=== PATIENT | female | born 1955 | race Caucasian/White ===

== ENCOUNTER 2023-08-04 09:51 | Emergency (ER) | payer OTHER ==
[~2023-08-04] VITALS: Ht 167.6 cm; Wt 65.8 kg
[~2023-08-04 09:51] MED LIST: AMOX500 PO; CRUTCH2 UD; ERYT.5TO BOTHEYES; OXYACE5T PO; RISP2 PO
[2023-08-04 10:05] VITALS: BP 115/65
[2023-08-04] MEDS ORDERED: IBUP600 PO (10:31)
== END 2023-08-04 11:19 | disposition home or self-care (01) ==
LOC: ER 09:51
DX: M54.9 Dorsalgia, unspecified (principal); G89.29 Other chronic pain; W01.0XXA Fall on same level from slipping, tripping and stumbling without subsequent striking against object, initial encounter
CPT/HCPCS: 99283; A9270

== ENCOUNTER 2023-08-17 08:08 | Emergency (ER) | payer SELFPAY ==
[~2023-08-17] VITALS: Ht 162.6 cm; Wt 81.7 kg
[~2023-08-17 08:08] MED LIST changes: +IBUP600 PO
[2023-08-17 12:53] LABS: BASOPHILS ABSOLUTE AUTO 0.02 K/mm3 (0.00-0.23); BASOPHILS PERCENT AUTO 0 % (0-2); EOSINOPHILS ABSOLUTE AUTO 0.01 K/mm3 (0.00-0.68); EOSINOPHILS PERCENT AUTO 0 % (0-6); Hemoglobin 15.2 g/dL (11.5-16.0); IMMATURE GRAN ABSOLUTE AUTO 0.02 K/mm3 (0.00-0.10); IMMATURE GRAN PERCENT AUTO 0 % (0-1); LYMPHOCYTES ABSOLUTE AUTO 1.21 K/mm3 (0.84-5.20); LYMPHOCYTES PERCENT AUTO 14 % (21-46); MONOCYTES PERCENT AUTO 6 % (4-13); Mean Corpuscular HGB 29.9 pg (26.0-34.0); Mean Corpuscular Volume 91 fL (80-100); Mean Platelet Volume 9.9 fL (9.1-12.4); NEUTROPHILS ABSOLUTE AUTO 7.02 K/mm3 (1.96-9.15); NEUTROPHILS PERCENT AUTO 80 % (41-73); Platelet Count 452 K/mm3 (150-400); RDW Coefficient Variation 12.3 % (11.7-14.2); RDW Standard Deviation 41.1 fL (35.1-46.3); Red Blood Cell Count 5.08 M/mm3 (3.80-5.20); White Blood Cell Count 8.78 K/mm3 (4.00-11.30)
[2023-08-17 13:11] LABS: Albumin, Blood 2.7 g/dL (3.4-5.0); Albumin/Globulin Ratio 0.6 (0.8-1.8); Bilirubin, Total 0.4 mg/dL (0.1-1.0); Creatinine, Blood 0.75 mg/dL (0.40-1.00); Globulin, Blood 4.5 g/dL (2.2-4.0); Potassium, Blood 4.3 mmol/L (3.5-5.5); Total Protein, Blood 7.2 g/dL (6.4-8.2)
[2023-08-17 17:34] LABS: Source, Urine Clean Catch
[2023-08-17 17:38] LABS: Appearance, Urine Hazy (Clear); Bilirubin, Urine Neg (Neg); Blood, Urine Neg (Neg); Color, Urine Yellow (P-Yellow); Glucose Qualitative, Urine Neg (Neg); Ketones, Urine 2+ (Neg); Leukocyte Esterase, Urine Neg (Neg); Nitrite, Urine Neg (Neg); Protein, Urine 2+ (Neg); Specific Gravity, Urine 1.025 (1.003-1.022); Urobilinogen, Urine NORM (Normal)
[2023-08-17 17:47] LABS: Amorphous Light (0-Heavy); Bacteria Few /hpf; Granular Casts 0-2 /lpf (0); Mucus Light (0-Heavy); Red Blood Cells, Urine 0-2 /hpf (0-2); Squamous Epithelial Cells Few /hpf (Few); White Blood Cells, Urine 0-2 /hpf (0-5)
[2023-08-17 18:51] LABS: U Amphetamine Screen Not Detected; U Barbituate Screen Not Detected; U Benzodiazapine Screen Not Detected; U Buprenorphine Screen Not Detected; U Cannabinoids Screen Not Detected; U Cocaine Screen Not Detected; U Methadone Screen Not Detected; U Methamphetamine Screen Not Detected; U Opiates Screen Not Detected; U Oxycodone Screen Not Detected; U Phencyclidine Screen Not Detected
[2023-08-18] MEDS ORDERED: Dexamethasone Sod Phos 10 MG/ML 1ML VIAL IV ONE (18:30)
[2023-08-18 22:00] VITALS: BP 127/77
== END 2023-08-18 22:50 | disposition short-term general hospital (02) ==
LOC: ER 08:08
PROVIDERS: Physician Assistant
DX: G95.89 Other specified diseases of spinal cord (principal); G92.8 Other toxic encephalopathy; R33.9 Retention of urine, unspecified; R26.89 Other abnormalities of gait and mobility; G89.29 Other chronic pain; M54.50 Low back pain, unspecified; T69.9XXA Effect of reduced temperature, unspecified, initial encounter; X31.XXXA Exposure to excessive natural cold, initial encounter; Z59.00 Homelessness unspecified
CPT/HCPCS: 51701; 51798; 70450; 72131; 72156; 72157; 72158; 80053; 81001; 85025; 96374; 99285-25; A9579; J1100

== ENCOUNTER 2024-04-24 13:37 | Emergency (ER) | payer MEDICARE, OTHER ==
[~2024-04-24] VITALS: Ht 162.6 cm; Wt 103.4 kg
[2024-04-24] MEDS ORDERED: Lidocaine 4% 1 Patch TOP ONE (14:35)
[2024-04-24] MEDS ORDERED: LIDO700A20 TOP (15:32)
[2024-04-24 16:00] VITALS: BP 131/71
== END 2024-04-24 17:11 | disposition home or self-care (01) ==
LOC: ER 13:37
DX: S29.012A Strain of muscle and tendon of back wall of thorax, initial encounter (principal); W19.XXXA Unspecified fall, initial encounter; Z87.891 Personal history of nicotine dependence; Z79.1 Long term (current) use of non-steroidal anti-inflammatories (NSAID)
CPT/HCPCS: 72070; 72100; 99283-25; A9270